=== PATIENT | male | born 1975 | race Caucasian/White ===

== ENCOUNTER 2019-09-22 14:19 | Emergency (ER) | payer BC, SELFPAY ==
[2019-09-22] MEDS ORDERED: LIDOCAINE 1% MPF 5 ML VIAL ONE (15:12)
[2019-09-22] MEDS ORDERED: TETANUS & DIPHTHERIA TOX,ADULT 0.5 ML VIAL ONE (15:12)
--- NOTE | 2019-09-22 15:29 | RAD REPORT ---
EXAM DESCRIPTION: RAD -Hand Left 3 View - 09/22/2019 3:20 pm CLINICAL HISTORY: Left hand pain status post injury FINDINGS: No fracture or dislocation is seen. A soft tissue laceration second PIP. No foreign body noted
--- NOTE | 2019-09-22 16:06 | ER ---
Nurse's Notes [facility] Name: Jose Angel Bradley II Age: 44 yrs Sex: Male : 1975 Arrival Date: 09/22/2019 Time: 14:29 Bed 24 Private MD: Diagnosis: Superficial laceration left 2nd digit Presentation: 09/22 14:57 Presenting complaint: Patient states: cut left index finger with very sharp knife. iw Transition of care: patient was not received from another setting of care. Complicating Factors: There are no complicating factors for this patient. Onset of symptoms was September 22, 2019. Risk Assessment: Do you want to hurt yourself or someone else? Patient reports no desire to harm self or others. Initial Sepsis Screen: Does the patient meet any 2 criteria? No. Patient's initial sepsis screen is negative. Does the patient have a suspected source of infection? No. Patient's initial sepsis screen is negative. 14:57 Method Of Arrival: Ambulatory iw 14:57 Acuity: SANDER 4 iw 14:57 Care prior to arrival: None. ca1 Historical: - Allergies: 16:25 No Known Allergies; ca1 - Immunization history:: Adult Immunizations up to date, Last tetanus immunization: unknown. - Coronavirus screen:: The patient has NOT traveled to [place] in the past 14 days. The patient has NOT had contact with known/suspected case of Coronavirus?. - Family history:: not pertinent. - Social history:: Smoking status: Patient denies any tobacco usage or history of. - Hospitalizations: : No recent hospitalization is reported. - Ebola Screening: : Patient negative for fever greater than or equal to 101.5 degrees Fahrenheit, and additional compatible Ebola Virus Disease symptoms Patient denies exposure to infectious person Patient denies travel to an Ebola-affected area in the 21 days before illness onset No symptoms or risks identified at this time. Screenin:59 Abuse screen: Denies threats or abuse. Denies injuries from another. Nutritional iw screening: No deficits noted. Tuberculosis screening: No symptoms or risk factors identified. Fall Risk None identified. Assessment: 15:00 General: Appears in no apparent distress. Behavior is calm, cooperative. Pain: iw Complains of pain in palmar aspect of proximal phalanx of left index finger. Neuro: Level of Consciousness is awake, alert, obeys commands, Oriented to person, place, time, situation, Moves all extremities. Cardiovascular: Patient's skin is warm and dry. Respiratory: Respiratory effort is even, unlabored. Derm: Skin is healthy with good turgor. Musculoskeletal: Range of motion: intact in all extremities. Injury Description: Laceration sustained to palmar aspect of proximal phalanx of left index finger is clean, 0.5 to 2.5 cm long, is bleeding a small amount. 16:15 Reassessment: Patient appears in no apparent distress at this time. Patient is alert, ca1 oriented x 3, equal unlabored respirations, skin warm/dry/pink. Vital Signs: 14:50 BP 123 / 88; Pulse 74; Resp 16; Temp 98.4; Pulse Ox 96% ; lt1 16:21 BP 117 / 83; Pulse 64; Resp 16; Pulse Ox 99% ; lt1 ED Course: 14:29 Patient arrived in ED. fj1 14:57 Arm band placed on right wrist. ca1 14:58 Triage completed. iw 14:59 Marquise Wolfe MD is Attending Physician. rn 15:00 Patient has correct armband on for positive identification. ca1 15:06 Bri Narvaez RN is Primary Nurse. iw 15:20 XRAY Hand LEFT 3 View In Process Unspecified. EDMS 15:59 Assist provider with laceration repair on palmar aspect of proximal phalanx of left iw index finger that was 2.5 cm. or less using sutures. Set up tray. Performed by Marquise Wolfe MD Dressed with Patient tolerated well. Patient did not have IV access during this emergency room visit. 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 Exp: iw 06/28/2021. Lot #: [id number]. } Route: IM; Site: right deltoid; 16:00 Follow up: Response: No adverse reaction ca1 16:00 Drug: Lidocaine (1 %) 1 vials {Note: By Dr. Wolfe.} Volume: 5 ml; Route: Infiltration; ca1 Outcome: 16:05 Discharge ordered by . rn 16:26 Discharged to home ambulatory. ca1 16:26 Condition: stable 16:26 Discharge instructions given to patient, Instructed on discharge instructions, follow up and referral plans. medication usage, wound care, Demonstrated understanding of instructions, follow-up care, medications, wound care. 16:28 Patient left the ED. ca1 Signatures: Dispatcher [employer] Bri Alvarado RN RN iw Nieto, Roman, MD MD rn Acob, Cheryl, RN RN ca1 Stefania Frausto 1 Demario Echols fj1
--- NOTE | 2019-09-22 16:06 | EDPHYS ---
Physician Documentation [facility] Name: Jose Angel Bradley II Age: 44 yrs Sex: Male : 1975 Arrival Date: 09/22/2019 Time: 14:29 Bed 24 Private MD: ED Physician Marquise Wolfe HPI: 09/22 15:05 This 44 yrs old Male presents to ER via Ambulatory with complaints of rn Laceration To Hand. 15:05 The patient has a laceration related to: a puncture wound from a knife , occurred at rn home. The laceration(s) is(are) located on the left hand, 2nd digit. Onset: The symptoms/episode began/occurred just prior to arrival. Associated signs and symptoms: The patient has no apparent associated signs or symptoms, Pertinent negatives: heavy bleeding, numbness distal to injury, suspected foreign body. The patient has not experienced similar symptoms in the past. Reports holding clean, never used knife in right hand, was going to peel off and cut duct tape, gave a little and accidentally hit knife with left 2nd digit. Mild bleeding, unknown tetanus, has FROM. No numbness/tingling.. Historical: - Allergies: 16:25 No Known Allergies; ca1 - Immunization history:: Adult Immunizations up to date, Last tetanus immunization: unknown. - Coronavirus screen:: The patient has NOT traveled to [place] in the past 14 days. The patient has NOT had contact with known/suspected case of Coronavirus?. - Family history:: not pertinent. - Social history:: Smoking status: Patient denies any tobacco usage or history of. - Hospitalizations: : No recent hospitalization is reported. - Ebola Screening: : Patient negative for fever greater than or equal to 101.5 degrees Fahrenheit, and additional compatible Ebola Virus Disease symptoms Patient denies exposure to infectious person Patient denies travel to an Ebola-affected area in the 21 days before illness onset No symptoms or risks identified at this time. ROS: 15:05 MS/Extremity: + laceration to left 2nd digit rn Exam: 15:05 Constitutional: This is a well developed, well nourished patient who is awake, alert, rn and in no acute distress. MS/ Extremity: Pulses equal, no cyanosis. Neurovascular intact. Full, normal range of motion. + 3 cm laceration, clean, to dorsomedial left 2nd digit medial and overlying PIP, very minimal bleeding, FROM 2nd digit. Vital Signs: 14:50 BP 123 / 88; Pulse 74; Resp 16; Temp 98.4; Pulse Ox 96% ; lt1 16:21 BP 117 / 83; Pulse 64; Resp 16; Pulse Ox 99% ; lt1 Procedures: 15:28 Nerve block: (digital) of palmar aspect of proximal phalanx of left index finger tangled yarn worker: Lidocaine 1% without epinephrine Amount: 4 mls were injected, Effect: the patient's symptoms are improved, Set up for procedure. Performed by Marquise Wolfe MD Patient tolerated well. Laceration: 16:03 Wound Repair of 3cm ( 1.2in ) subcutaneous laceration to left 2nd digit, dorsomedial rn PIP. Distal neuro/vascular/tendon intact. Anesthesia: Digital block administered with 3 mls of 1% lidocaine. Wound prep: Extensive cleansing by civil laboratory technician, Wound irrigation, Copious irrigation. Skin closed with 5 4-0 Prolene using interrupted sutures and sterile technique. Dressed with Kerlix. Patient tolerated well. MDM: 14:59 Patient medically screened. rn 16:03 Differential diagnosis: superficial laceration. Data reviewed: vital signs, nurses rn notes, radiologic studies, plain films, and as a result, I will discharge patient. Counseling: I had a detailed discussion with the patient and/or guardian regarding: the historical points, exam findings, and any diagnostic results supporting the discharge/admit diagnosis, radiology results, the need for outpatient follow up, to return to the emergency department if symptoms worsen or persist or if there are any questions or concerns that arise at home. Response to treatment: the patient's symptoms have markedly improved after treatment, and as a result, I will discharge patient. Special discussion: I discussed with the patient/guardian in detail that at this point there is no indication for admission to the hospital. It is understood, however, that if the symptoms persist or worsen the patient needs to return immediately for re-evaluation. ED course: FROM left 2nd digit before and after sutures. Return in 14 days. . 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 Exp: iw 06/28/2021. Lot #: [id number]. } Route: IM; Site: right deltoid; 16:00 Follow up: Response: No adverse reaction ca1 16:00 Drug: Lidocaine (1 %) 1 vials {Note: By Dr. Wolfe.} Volume: 5 ml; Route: Infiltration; ca1 Disposition: 09/22/19 16:05 Discharged to Home. Impression: Superficial laceration left 2nd digit. - Condition is Stable. - Discharge Instructions: Laceration Care, Adult, Sutured Wound Care. - Prescriptions for Augmentin 875- 125 mg Oral Tablet - take 1 tablet by ORAL route every 12 hours for 10 days; 20 tablet. - Medication Reconciliation Form, Thank You Letter, Antibiotic Education, Prescription Opioid Use form. - Follow up: Emergency Department; When: 14 days; Reason: Wound Recheck, Staple/Suture removal. - Problem is new. - Symptoms have improved. Signatures: Dispatcher [employer] EDMS Bri Narvaez RN RN iw Yaneth, MD MD barak [place] Acob, BARAK Gomez RN ca1 Corrections: (The following items were deleted from the chart) 16:28 16:05 09/22/2019 16:05 Discharged to Home. Impression: Superficial laceration left 2nd ca1 digit. Condition is Stable. Forms are Medication Reconciliation Form, Thank You Letter, Antibiotic Education, Prescription Opioid Use. Follow up: Emergency Department; When: 14 days; Reason: Wound Recheck, Staple/Suture removal. Problem is new. Symptoms have improved. rn
[2019-09-22 16:38] VITALS: TEMP 98.4
[2019-09-22 16:39] VITALS: BP 117/83; O2SAT 99
== END 2019-09-22 16:28 | disposition home or self-care (01) ==
LOC: ER 14:19
PROC: 0JQK0ZZ Repair Left Hand Subcutaneous Tissue and Fascia, Open Approach (ICD-10-PCS; principal; 2019-09-22)
DX: S61.211A Laceration without foreign body of left index finger without damage to nail, initial encounter (principal); W26.0XXA Contact with knife, initial encounter; Y93.89 Activity, other specified; Y92.009 Unspecified place in unspecified non-institutional (private) residence as the place of occurrence of the external cause; Z23 Encounter for immunization
CPT/HCPCS: 64450; 90471; 90714; 99283

== ENCOUNTER 2020-04-30 09:57 | Inpatient (IN) | payer SELFPAY ==
[2020-04-30] MEDS ORDERED: VANCOMYCIN/NS 1 gm 1 GM/250 ML BAG IV ONE (11:30)
[2020-04-30 11:32] LABS: Absolute Lymphocytes (CBC) 1.7 K/uL (0.7-4.9); Basophils % 0.4 % (0-1.3); Hematocrit 44.4 % (39.6-49.0); Lymphocytes % 9.8 % (15.3-44.8); MPV 9.3 fL (7.6-11.3); RBC Red Blood Cell Count 4.81 M/uL (4.33-5.43)
--- NOTE | 2020-04-30 11:33 | ER ---
Nurse's Notes [facility] Name: Jose Angel Bradley II Age: 44 yrs Sex: Male : 1975 Arrival Date: 04/30/2020 Time: 09:57 Bed 19 Private MD: Diagnosis: Cellulitis of left upper limb;Open wound of forearm;Acute lymphangitis of left upper limb Presentation: 04/30 10:21 Chief complaint: Patient states: infected hair folicle on left arm, redness, swelling, dm5 and streaking noted from wrist to elbow. 10:21 Acuity: SANDER 3 dm5 10:29 Coronavirus screen: Client denies travel out of the [place] in the last 14 days. At this ll1 time, the client does not indicate any symptoms associated with coronavirus-19. Ebola Screen: Patient denies travel to an Ebola-affected area in the 21 days before illness onset. Initial Sepsis Screen: Does the patient meet any 2 criteria? No. Patient's initial sepsis screen is negative. Risk Assessment: Do you want to hurt yourself or someone else? Patient reports no desire to harm self or others. Onset of symptoms was April 25, 2020. 10:29 Method Of Arrival: Ambulatory ll1 12:26 Initial Sepsis Screen: Does the patient have a suspected source of infection? Yes: Skin ph breakdown/wound. 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 - Social history:: Smoking status: Patient reports the use of cigarette tobacco products, smokes one pack cigarettes per day. Screenin:25 Abuse screen: Denies threats or abuse. Denies injuries from another. Nutritional ph screening: No deficits noted. Tuberculosis screening: No symptoms or risk factors identified. Fall Risk None identified. Assessment: 12:23 General: Appears in no apparent distress. comfortable, well groomed, Behavior is calm, ph cooperative, appropriate for age, Reports chills for 0-12 hours, Denies fever. Pain: Complains of pain in dorsal aspect of left forearm. Neuro: Level of Consciousness is awake, alert, obeys commands, Oriented to person, place, time, situation. Cardiovascular: Capillary refill < 3 seconds in bilateral fingers Patient's skin is warm and dry. Respiratory: Airway is patent Respiratory effort is even, unlabored, Respiratory pattern is regular, symmetrical. GI: Patient currently denies diarrhea, nausea, vomiting. Derm: Skin is healthy with good turgor, Skin is pink, warm \T\ dry. Abscess located on dorsal aspect of left forearm is redness noted to be extending to palmar aspect of forearm and dorsal aspect of hand. Vital Signs: 10:29 BP 147 / 100; Pulse 89; Resp 18; Temp 98.2; Pulse Ox 96% ; Weight 97.52 kg; Height 6 ll1 ft. 0 in. (182.88 cm); Pain 3/10; 12:23 BP 142 / 93; Pulse 82; Resp 18; Pulse Ox 99% on R/A; ph 13:14 Temp 98.4; ph 10:29 Body Mass Index 29.16 (97.52 kg, 182.88 cm) ll1 ED Course: 09:57 Patient arrived in ED. ds1 10:22 Triage completed. dm5 10:32 Arm band placed on. ll1 11:08 Kenneth Wakefield PA is PHCP. jr8 11:08 Alec Alvarado MD is Attending Physician. jr8 11:10 Brynn Moran, BARAK is Primary Nurse. ph 11:22 First set of blood cultures drawn by mt. dm5 11:28 Inserted saline lock: 20 gauge in left antecubital area, using aseptic technique. Blood dm5 collected. 11:32 Girma Franco DO is Hospitalizing Provider. jr8 11:37 US Extrmty Nonvasular Limited In Process Unspecified. EDMS 12:25 Patient has correct armband on for positive identification. Bed in low position. Call ph light in reach. Side rails up X 1. Pulse ox on. NIBP on. Door closed. Noise minimized. 13:30 No provider procedures requiring assistance completed. Patient admitted, IV remains in ph place. Administered Medications: 12:15 Drug: Cefepime 1 grams Route: IVPB; Rate: 200 ml/hr; Infused Over: 30 mins; Site: right ph antecubital; 12:49 Follow up: Response: No adverse reaction; IV Status: Completed infusion ph 12:15 Drug: NS 0.9% 1000 ml Route: IV; Rate: 100 ml/hr; Site: right antecubital; ph 12:49 Follow up: Response: No adverse reaction; IV Status: Infusion continued upon admission ph 12:49 Drug: vancoMYCIN 1 grams Route: IVPB; Infused Over: 2 hrs; Site: right antecubital; ph 13:10 Follow up: IV Status: Infusion continued upon admission ph 13:05 Drug: Zofran (Ondansetron) 4 mg Route: IVP; Site: right antecubital; ph 13:11 Follow up: Response: No adverse reaction; Nausea is decreased ph 13:07 Drug: morphine 4 mg Route: IVP; Site: right antecubital; ph 13:10 Follow up: Response: No adverse reaction; Pain is decreased; RASS: Alert and Calm (0) ph Outcome: 11:32 Decision to Hospitalize by Provider. timo 13:31 Patient left the ED. ph 13:31 Admitted to Med/surg accompanied by tech, family with patient, via wheelchair, with ph chart. 13:31 Condition: good 13:31 Instructed on the need for admit. Signatures: Dispatcher [employer] Romelia Gale, RN RN [email or web address] Jenny Wagner ds1 Kenneth Wakefield PA PA jr8 Brynn Moran RN RN Lori Anderson RN RN ll1
--- NOTE | 2020-04-30 11:33 | EDPHYS ---
Physician Documentation [facility] Name: Jose Angel Bradley II Age: 44 yrs Sex: Male : 1975 Arrival Date: 04/30/2020 Time: 09:57 Bed 19 Private MD: ED Physician Alec Alvarado HPI: 04/30 11:24 This 44 yrs old Male presents to ER via Ambulatory with complaints of Arm jr8 Pain - Possible infection. 11:24 The patient or guardian complains of pain, a rash, swelling, tenderness. The complaints jr8 affect the dorsal aspect of left forearm and palmar aspect of left forearm. Context: The problem was sustained at home. Onset: The symptoms/episode began/occurred gradually, 2 day(s) ago, and became worse today. Modifying factors: The symptoms are alleviated by nothing. the symptoms are aggravated by nothing. Associated signs and symptoms: The patient has no apparent associated signs or symptoms. Severity of symptoms: At their worst the symptoms were moderate, in the emergency department the symptoms are unchanged. The patient has not experienced similar symptoms in the past. The patient has not recently seen a physician. Patient stated that he shaved his arm the other day. Had what he thought was infected follicle. This morning had rapid increase in swelling and with streaking of underarm . Historical: - Allergies: 10: No Known Allergies; ll1 - PMHx: 10: MRSA; ruptured disc; ll1 - Immunization history:: Flu vaccine is up to date. - Social history:: Smoking status: Patient reports the use of cigarette tobacco products, smokes one pack cigarettes per day. ROS: 11:26 Eyes: Negative for injury, pain, redness, and discharge, ENT: Negative for injury, jr8 pain, and discharge, Neck: Negative for injury, pain, and swelling, Cardiovascular: Negative for chest pain, palpitations, and edema, Respiratory: Negative for shortness of breath, cough, wheezing, and pleuritic chest pain, Abdomen/GI: Negative for abdominal pain, nausea, vomiting, diarrhea, and constipation, Back: Negative for injury and pain, Neuro: Negative for headache, weakness, numbness, tingling, and seizure. 11:26 MS/extremity: Positive for erythema, pain, swelling, tenderness, of the left arm. Exam: 11:26 Constitutional: This is a well developed, well nourished patient who is awake, alert, jr8 and in no acute distress. Cardiovascular: Regular rate and rhythm with a normal S1 and S2. No gallops, murmurs, or rubs. Normal PMI, no JVD. No pulse deficits. Respiratory: Lungs have equal breath sounds bilaterally, clear to auscultation and percussion. No rales, rhonchi or wheezes noted. No increased work of breathing, no retractions or nasal flaring. Abdomen/GI: Soft, non-tender, with normal bowel sounds. No distension or tympany. No guarding or rebound. No evidence of tenderness throughout. Back: No spinal tenderness. No costovertebral tenderness. Full range of motion. Skin: Warm, dry with normal turgor. Normal color Neuro: Awake and alert, GCS 15, oriented to person, place, time, and situation. Cranial nerves II-XII grossly intact. Motor strength 5/5 in all extremities. Sensory grossly intact. Cerebellar exam normal. Normal gait. 11:26 Musculoskeletal/extremity: Extremities: grossly normal except: noted in the left arm: Patient has approximately 4 mm open wound to mid dorsal left arm. Moderate swelling surrounds wound extending out about 4 cm around. There is streaking noted to ventral aspect of arm extending from wrist to AC region as well. Pain noted with flexion and extension of wrist but with full ROM, Pulses: noted to be 2+ in the right radial artery and left radial artery, Sensation intact. Vital Signs: 10:29 BP 147 / 100; Pulse 89; Resp 18; Temp 98.2; Pulse Ox 96% ; Weight 97.52 kg; Height 6 ll1 ft. 0 in. (182.88 cm); Pain 3/10; 12:23 BP 142 / 93; Pulse 82; Resp 18; Pulse Ox 99% on R/A; ph 13:14 Temp 98.4; ph 10:29 Body Mass Index 29.16 (97.52 kg, 182.88 cm) ll1 MDM: 11:08 Patient medically screened. [facility] 11:26 Data reviewed: vital signs, nurses notes, lab test result(s), radiologic studies, jr8 ultrasound, and as a result, I will admit patient. Data interpreted: Pulse oximetry: on room air is 96 %. Interpretation: normal. Counseling: I had a detailed discussion with the patient and/or guardian regarding: the historical points, exam findings, and any diagnostic results supporting the discharge/admit diagnosis, lab results, radiology results, the need for further work-up and treatment in the hospital. 04/30 11:14 Order name: CBC with Diff; Complete Time: 12:20 jr8 04/30 11:14 Order name: Basic Metabolic Panel; Complete Time: 12:20 8 04/30 11:14 Order name: LFT's; Complete Time: 12:20 8 04/30 11:14 Order name: Blood Culture Adult (2) [facility] 04/30 11:14 Order name: ESR; Complete Time: 12:20 8 04/30 11:14 Order name: CRP; Complete Time: 12:20 8 04/30 11:14 Order name: Procalcitonin; Complete Time: 12:25 8 04/30 11:21 Order name: US Extrmty Nonvasular Limited [facility] 04/30 11:26 Order name: Wound Culture [facility] 04/30 11:14 Order name: IV; Complete Time: 11:18 jr8 Administered Medications: 12:15 Drug: Cefepime 1 grams Route: IVPB; Rate: 200 ml/hr; Infused Over: 30 mins; Site: right ph antecubital; 12:49 Follow up: Response: No adverse reaction; IV Status: Completed infusion ph 12:15 Drug: NS 0.9% 1000 ml Route: IV; Rate: 100 ml/hr; Site: right antecubital; ph 12:49 Follow up: Response: No adverse reaction; IV Status: Infusion continued upon admission ph 12:49 Drug: vancoMYCIN 1 grams Route: IVPB; Infused Over: 2 hrs; Site: right antecubital; ph 13:10 Follow up: IV Status: Infusion continued upon admission ph 13:05 Drug: Zofran (Ondansetron) 4 mg Route: IVP; Site: right antecubital; ph 13:11 Follow up: Response: No adverse reaction; Nausea is decreased ph 13:07 Drug: morphine 4 mg Route: IVP; Site: right antecubital; ph 13:10 Follow up: Response: No adverse reaction; Pain is decreased; RASS: Alert and Calm (0) ph Disposition: 05/01 09:26 Co-signature as Attending Physician, Alec Alvarado MD I agree with the assessment and kdr plan of care. Disposition: 04/30/20 11:32 Hospitalization ordered by Girma Franco for Inpatient Admission. Preliminary diagnosis are Cellulitis of left upper limb, Open wound of forearm, Acute lymphangitis of left upper limb. - Bed requested for Telemetry/MedSurg (Inpatient). - Status is Inpatient Admission. ph - Condition is Stable. - Problem is new. - Symptoms are unchanged. Signatures: Dispatcher [employer] EDMS Alec Alvarado MD MD kdr Roszak, Josh, PA PA jr8 Brynn Moran RN RN ph Eduard Jett, RN RN ja1 Lori Anderson RN RN ll1 Corrections: (The following items were deleted from the chart) 04/30 11:32 11:32 Hospitalization Ordered by Girma Franco DO for Inpatient Admission. Preliminary jr8 diagnosis is Cellulitis of left upper limb; Open wound of forearm. Bed requested for Telemetry/MedSurg (Inpatient). Status is Inpatient Admission. Condition is Stable. Problem is new. Symptoms are unchanged. jr8 12:46 11:32 04/30/2020 11:32 Hospitalization Ordered by Girma Franco DO for Inpatient ja1 Admission. Preliminary diagnosis is Cellulitis of left upper limb; Open wound of forearm; Acute lymphangitis of left upper limb. Bed requested for Telemetry/MedSurg (Inpatient). Status is Inpatient Admission. Condition is Stable. Problem is new. Symptoms are unchanged. jr8 13:31 12:46 04/30/2020 11:32 Hospitalization Ordered by Girma Franco DO for Inpatient ph Admission. Preliminary diagnosis is Cellulitis of left upper limb; Open wound of forearm; Acute lymphangitis of left upper limb. Bed requested for Telemetry/MedSurg (Inpatient). Status is Inpatient Admission. Condition is Stable. Problem is new. Symptoms are unchanged. ja1
[2020-04-30] MEDS ORDERED: NA CHLORIDE 0.9% 1,000 ML ONE (11:42)
[2020-04-30 11:59] LABS: ALT/SGPT 24 U/L (12-78); AST/SGOT 11 U/L (15-37); Albumin 4.7 g/dL (3.4-5.0); Alkaline Phosphatase 74 U/L (45-117); BUN Blood Urea Nitrogen 12 mg/dL (7-18); Bicarbonate 26 mmol/L (21-32); Bilirubin Direct 0.1 mg/dL (0-0.2); Bilirubin Total 0.5 mg/dL (0.2-1.0); Glucose Level 87 mg/dL (74-106); Potassium 4.2 mmol/L (3.5-5.1); Protein, Total 8.3 g/dL (6.4-8.2); Sodium Level 138 mmol/L (136-145)
--- NOTE | 2020-04-30 12:29 | P.HP ---
Certification for Inpatient Patient admitted to: Inpatient With expected LOS: >2 Midnights Patient will require the following post-hospital care: None Practitioner: I am a practitioner with admitting privileges, knowledge of patient current condition, hospital course, and medical plan of care. Services: Services provided to patient in accordance with Admission requirements found in Title 42 Section 412.3 of the Code of Federal Regulations Patient History Date of Service: 04/30/20 Primary Care Provider: none Reason for admission: Left forearm cellulitis/abscess History of Present Illness: 44 yo CM without major medical issues presented to the ER with worsening left arm erythema, warmth and pain. The patient noted some irritation to the left forearm at the site of a possible ingrown hair. He shaved the area to better address for wound care. This started on Monday. Erythema continued to worsen. Today he woke up with increased erythema, pain and swelling. He start to notice erythema heading towards the elbow and the wrist area. Patient denies any significant chest pain, shortness of breath, headache or dizziness. He denies any significant fever. He came to the ER for further evaluation. In the ER patient was evaluated. Patient had notable inflammation to the left forearm region. White count 16.9, hemoglobin 15. Neutrophils elevated. CRP also elevated. Sodium 138, potassium 4.2. BUN of 12, creatinine 0.9. GFR greater than 90. Glucose 87. Ultrasound to the left forearm pending. X-rays also pending. Patient was admitted for further evaluation and treatment. When I evaluated the patient. He had reported that he had a history of infection to the right elbow all the require debridement many years ago. The patient has a tattoo to the area of inflammation. He reports that he has tried to take care of the infection on his own without success. Allergies No Known Allergies Allergy (Unverified 04/30/20 11:27) Home medications list reviewed: No - Past Medical/Surgical History Diabetic: No -: Ruptured disc -: Pain shot injections to the spine -: Irrigation debridement to the right elbow Psychosocial/ Personal History: Patient is - Family History Family History: Reviewed- Non-Contributory - Social History Smoking Status: Light Tobacco smoker (1-9 cigarettes/day) Counseled patient to stop smoking for: less than 10 minutes Smoking therapy provided: No Patient receptive to therapy: No Alcohol use: Yes CD- Drugs: No Caffeine use: Yes Place of Residence: Home Review of Systems General: As per HPI Eyes: Unremarkable ENT: Unremarkable Respiratory: Unremarkable Cardiovascular: Unremarkable Gastrointestinal: Unremarkable Genitourinary: Unremarkable Musculoskeletal: As per HPI Integumentary: As per HPI Neurological: Unremarkable Lymphatics: Unremarkable Physical Examination - Physical Exam General: Alert, In no apparent distress, Oriented x3, Cooperative HEENT: Atraumatic, Normocephalic, Mucous membr. moist/pink Neck: Supple Respiratory: Clear to auscultation bilaterally, Normal air movement Cardiovascular: Normal pulses, Regular rate/rhythm Gastrointestinal: Normal bowel sounds, Soft and benign, Non-distended Musculoskeletal: No clubbing Integumentary: Other (Significant area of erythema to the left forearm along with swelling, warmth. There is an area of fluctuance that measures about 2-3 cm in length. There is a small puncture site. Some drainage noted. Erythema noted extending to the elbow region and a wrist but not crossing the joints. Pain noted with palpation. Patient with large tattoo to the area.) Neurological: Normal speech, Normal strength at 5/5 x4 extr, Normal tone, Normal affect - Studies Laboratory Data (last 24 hrs) 04/30/20 11:24: Sodium 138, Potassium 4.2, BUN 12, Creatinine 0.90, Glucose 87, Total Bilirubin 0.5, AST 11 L, ALT 24, Alkaline Phosphatase 74 04/30/20 11:24: WBC 16.9 H, Hgb 15.1, Hct 44.4, Plt Count 246 Assessment and Plan - Plan Impression: Left forearm cellulitis with possible abscess Plan: Patient will be admitted for further evaluation and treatment. Case discussed with surgery. Patient remains NPO at this time. Patient will require surgical debridement. Will start and continue with vancomycin and cefepime. Will obtain blood and wound culture results. Continue monitor lab closely. Will provide medication for pain also start IV fluids. Await evaluation and surgical recommendations. Anticipate improvement over the next 48-72 hr. Discharge Plan: Home Plan to discharge in: 72 Hours - Advance Directives Does patient have a Living Will: No Does patient have a Durable POA for Healthcare: No - Code Status/Comfort Care Code Status Assessed: Yes (Patient is full code) Time Spent Managing Pts Care (In Minutes): 55
[2020-04-30] MEDS ORDERED: ONDANSETRON 4 MG/2 ML VIAL ONE (13:11)
[2020-04-30] MEDS ORDERED: MORPHINE 4 MG/ML SYR ONE (13:11)
[2020-04-30] MEDS ORDERED: VANCOMYCIN 750 MG in NA CHLORIDE 0.9% 150 ML IVPB ONE (14:00)
[2020-04-30] MEDS ORDERED: ACETAMINOPHEN 650MG/RECT SUPP PR PRN (14:40)
[2020-04-30] MEDS: NA CHLORIDE 0.9% 1,000 ML IV SCH (14:40)
[2020-04-30] MEDS ORDERED: ACETAMINOPHEN 500 MG TAB PO PRN (14:40)
[2020-04-30] MEDS ORDERED: TRAMADOL HCL 50 MG TAB PO PRN (14:40)
[2020-04-30] MEDS ORDERED: MORPHINE 2 MG/ML SYR IV PRN (14:40)
[2020-04-30] MEDS ORDERED: CEFEPIME 1 GM/VIAL IV SCH (14:40)
[2020-04-30] MEDS ORDERED: ONDANSETRON 4 MG/2 ML VIAL IV PRN (14:40)
[2020-04-30] MEDS: ENOXAPARIN 40 MG/0.4 ML SQ SCH (15:00)
--- NOTE | 2020-04-30 15:12 | P.CNS ---
Date of Consult: 04/30/20 PC: This patient presents emergency room with pain in his left forearm for diagnosis and treatment. HPC: Patient has some redness and swelling in this area last few days. Gradually pointed into an abscess. This partially opened and drained some purulent material. However he is having increasing pain in discomfort. PMH: Negative PSHx: Negative SOC: No known allergies SYS REVIEW: No cough, wheeze, shortness of breath. No chest pain or palpitations. No urinary complaints. Has good movement of his fingers, wrist and elbow. No loss of sensation. O/E awake alert vital signs are stable HEENT: Within normal limits Chest: Air entry equal bilaterally ABD: Soft LOCO: Swelling over the dorsum of the left forearm. Has a fluctuant area measuring approximately 4 inches x 3 inches in size. DATA: Elevated white cell count IMPRESSION: Abscess PLAN: I will take him to the operating room for incision, drainage, sharp debridement of this abscess of the left forearm. The risks of this procedure have been discussed. The possibility of bleeding, infection, recurrence and need for further surgeries and procedures was described. The fact that it will inner few events is tattoo and may cause some alteration were explained. He understands and wants us to proceed.
[2020-04-30] MEDS: CEFEPIME/SWI 1gm 10 ML IVP SCH ×2 (15:30→20:15)
[2020-04-30 15:51] VITALS: BMI 29.1
[2020-04-30] MEDS ORDERED: propofoL 200 MG/20 ML VIAL IV ONE ×2 (16:00→17:25)
[2020-04-30] MEDS ORDERED: FENTANYL CITR 100 MCG/2 ML ONE (16:00)
[2020-04-30] MEDS ORDERED: MIDAZOLAM HCL 2 MG/2 ML INJ ONE (16:00)
[2020-04-30] MEDS ORDERED: Ringers Lactate 1,000 ML IV ONE (16:01)
[2020-04-30] MEDS ORDERED: BUPIVACAINE 0.5% PF 10 ML VIAL ONE ×2 (16:54→17:27)
--- NOTE | 2020-04-30 17:24 | P.OP ---
Preoperative diagnosis: Abscess of left forearm Postoperative diagnosis: The same Primary procedure: Incision, drainage, sharp debridement of abscess of the left forearm Anesthesia: Mac Estimated blood loss: Less than 10 cc Specimen: Cultures both a aerobic and anaerobic were taken Operative Technique: The patient brought the operating room and placed supine on the table. After the induction of adequate sedation by anesthesia, the area of the left forearm was prepped with a Betadine solution draped in usual aseptic manner. The area was injected with 0.25% Marcaine. The central necrotic area was excise d using 11 blade prone. This allowed us to access the abscess cavity which was in the deep subcutaneous tissue on top of the fascia. This loculations were broken down and the purulent material was removed. A 2. Nylon was now placed into the wound and brought out more superiorly approximately 3 inches from our initial opening and the suture was then tied on itself to keep the area open and draining during the postoperative period. Again 0.25% Marcaine was used to infiltrate the area to allow for adequate analgesia during the postoperative period. The procedure he was stable when sent to the recovery room. Needle sponge instrument count were correct. Drain(s): Other (A 2. Nylon) Transferred to: Recovery Room Condition: Good
[2020-04-30] MEDS: HYDROCODONE/APAP 7.5/325 MG TAB PO PRN (20:15)
[2020-04-30] MEDS: MUPIROCIN 2% OINT 22GM TUBE TOP SCH (20:16)
[2020-04-30 23:51] LABS: Urine Appearance CLEAR; Urine Bilirubin NEGATIVE (NEG); Urine Blood NEGATIVE (NEG); Urine Color YELLOW; Urine Glucose NEGATIVE (NEG); Urine Protein NEGATIVE (NEG); Urine Urobilinogen 0.2 mg/dL (0.2-1.0); Urine pH 6.5 (5.0-7.0)
[2020-04-30 23:53] LABS: Urine Microscopic Reflex NO UMIC
--- NOTE | 2020-05-01 00:27 | RAD REPORT ---
EXAM DESCRIPTION: RAD - Elbow Left 3 View - 04/30/2020 10:22 pm CLINICAL HISTORY: Left forearm cellulitis/abscess COMPARISON: No comparisons FINDINGS: Small olecranon spur is noted. Mild soft tissue swelling is seen about the elbow. No fract ure, dislocation or evidence of osteomyelitis. No radiopaque foreign body.
[2020-05-01] MEDS ORDERED: VANCOMYCIN 1.75 GM in NA CHLORIDE 0.9% 500 ML IVPB SCH (02:00)
[2020-05-01] MEDS: HYDROCODONE/APAP 7.5/325 MG TAB PO PRN ×2 (04:43→10:21)
[2020-05-01] MEDS: NA CHLORIDE 0.9% 1,000 ML IV SCH (04:44)
[2020-05-01 05:27] LABS: Absolute Lymphocytes (CBC) 2.2 K/uL (0.7-4.9); Basophils % 0.5 % (0-1.3); Hematocrit 35.6 % (39.6-49.0); MPV 9.1 fL (7.6-11.3); RBC Red Blood Cell Count 3.91 M/uL (4.33-5.43)
[2020-05-01 05:43] LABS: BUN Blood Urea Nitrogen 10 mg/dL (7-18); Bicarbonate 23 mmol/L (21-32); Glucose Level 97 mg/dL (74-106); Potassium 3.8 mmol/L (3.5-5.1); Sodium Level 140 mmol/L (136-145)
[2020-05-01] MEDS: CEFEPIME/SWI 1gm 10 ML IVP SCH (08:24)
[2020-05-01] MEDS: ENOXAPARIN 40 MG/0.4 ML SQ SCH (08:25)
[2020-05-01] MEDS ORDERED: POTASSIUM CL SA 10 MEQ TAB PO ONE (09:00)
--- NOTE | 2020-05-01 09:07 | P.DS ---
Admission Date: 04/30/20 Discharge Date: 05/01/20 Primary Care Provider: none Disposition: ROUTINE DISCHARGE Discharge Condition: GOOD Reason for Admission: Left forearm cellulitis/abscess Consultations: Surgery-Dr. Mccabe Procedures: Surgery: Date: 04/30/20 17:21 Preoperative diagnosis: Abscess of left forearm Postoperative diagnosis: The same Primary procedure: Incision, drainage, sharp debridement of abscess of the left forearm Anesthesia: Mac Estimated blood loss: Less than 10 cc Specimen: Cultures both a aerobic and anaerobic were taken Drain(s): Other (A 2. Nylon) Transferred to: Recovery Room Condition: Good Medical Problem List: Left forearm cellulitis/ and abscess status post incision, drainage and sharp debridement of abscess Brief History of Present Illness: 44 yo CM without major medical issues presented to the ER with worsening left arm erythema, warmth and pain. The patient noted some irritation to the left forearm at the site of a possible ingrown hair. He shaved the area to better address for wound care. This started on Monday. Erythema continued to worsen. Today he woke up with increased erythema, pain and swelling. He start to notice erythema heading towards the elbow and the wrist area. Patient denies any significant chest pain, shortness of breath, headache or dizziness. He denies any significant fever. He came to the ER for further evaluation. In the ER patient was evaluated. Patient had notable inflammation to the left forearm region. White count 16.9, hemoglobin 15. Neutrophils elevated. CRP also elevated. Sodium 138, potassium 4.2. BUN of 12, creatinine 0.9. GFR greater than 90. Glucose 87. Ultrasound to the left forearm pending. X-rays also pending. Patient was admitted for further evaluation and treatment. When I evaluated the patient. He had reported that he had a history of infection to the right elbow all the require debridement many years ago. The patient has a tattoo to the area of inflammation. He reports that he has tried to take care of the infection on his own without success. Hospital Course: Patient presented with left forearm cellulitis/abscess. Patient was admitted for further evaluation and treatment. Patient seen by surgery. Surgical intervention was required. Patient had incision, drainage and sharp debridement of the abscess. Patient tolerated the procedure well. Patient has done well Overnite. At discharge patient will continue with current wound care as jalyn mmended by surgery. At discharge patient will continue with doxycycline 100 mg 1 pill twice daily and Bactrim DS 1 pill twice daily for 7 days. Patient will also be provided Bactroban ointment to be applied to the nares and umbilicus twice daily. A limited supply of Tylenol with codeine 1 pill 3 times a day as needed for pain will be provided. Patient may take Tylenol or ibuprofen over the counter as needed for pain as well. Recommend to elevate arm when sitting or lying down. Recommend follow up with surgery within 1 week to follow up this hospitalization and continue his care. Vital Signs/Physical Exam: Temp Pulse Resp BP Pulse Ox 98.2 F 81 18 124/74 96 05/01/20 08:00 05/01/20 08:00 05/01/20 08:00 05/01/20 08:00 05/01/20 08:00 General: Alert, In no apparent distress, Oriented x3, Cooperative HEENT: Atraumatic Neck: Supple Respiratory: Clear to auscultation bilaterally, Normal air movement Cardiovascular: Normal pulses, Regular rate/rhythm Gastrointestinal: Normal bowel sounds, Soft and benign, Non-distended Integumentary: Other (Erythema resolved. Swelling improved. Postsurgical changes noted. Nylon string in place.) Neurological: Normal speech, Normal strength at 5/5 x4 extr, Normal tone, Normal affect Laboratory Data at Discharge: WBC 15.4 K/uL (4.3-10.9) H 05/01/20 05:12 Hgb 12.2 g/dL (13.6-17.9) L D 05/01/20 05:12 Hct 35.6 % (39.6-49.0) L D 05/01/20 05:12 Plt Count 195 K/uL (152-406) D 05/01/20 05:12 Sodium 140 mmol/L (136-145) 05/01/20 05:12 Potassium 3.8 mmol/L (3.5-5.1) 05/01/20 05:12 BUN 10 mg/dL (7-18) 05/01/20 05:12 Creatinine 0.89 mg/dL (0.55-1.3) 05/01/20 05:12 Glucose 97 mg/dL (74-106) 05/01/20 05:12 Magnesium 2.0 mg/dL (1.8-2.4) 05/01/20 05:12 Total Bilirubin 0.5 mg/dL (0.2-1.0) 04/30/20 11:24 AST 11 U/L (15-37) L 04/30/20 11:24 ALT 24 U/L (12-78) 04/30/20 11:24 Alkaline Phosphatase 74 U/L (45-117) 04/30/20 11:24 Home Medications: Codeine/APAP [Tylenol W/Codeine #3 tab] 1 tab PO TID PRN #10 tab 05/01/20 Doxycycline Hyclate 100 mg PO BID #14 tablet 05/01/20 Mupirocin Oint [Bactroban 2% Ointment*] 1 appl TOP BID #1 tube 05/01/20 Sulfamethoxazole/Trimethoprim [Bactrim Ds Tablet] 1 each PO BID #14 tablet 05/01/20 New Medications: Sulfamethoxazole/Trimethoprim [Bactrim Ds Tablet] 1 each PO BID #14 tablet Mupirocin Oint [Bactroban 2% Ointment*] 1 appl TOP BID #1 tube Doxycycline Hyclate 100 mg PO BID #14 tablet Codeine/APAP [Tylenol W/Codeine #3 tab] 1 tab PO TID PRN #10 tab PRN Reason: Pain Patient Discharge Instructions: 1. Recommend to establish care with PCP to follow up this hospitalization. 2. Patient presented with left forearm cellulitis/abscess. Patient was admitted for further evaluation and treatment. Patient seen by surgery. Surgical intervention was required. Patient had incision, drainage and sharp debridement of the abscess. Patient tolerated the procedure well. Patient has done well Overnite. At discharge patient will continue with current wound care as recommended by surgery. At discharge patient will continue with doxycycline 100 mg 1 pill twice daily and Bactrim DS 1 pill twice daily for 7 days. Patient will also be provided Bactroban ointment to be applied to the nares and umbilicus twice daily. A limited supply of Tylenol with codeine 1 pill 3 times a day as needed for pain will be provided. Patient may take Tylenol or ibuprofen over the counter as needed for pain as well. Recommend to elevate arm when sitting or lying down. Recommend follow up with surgery within 1 week to follow up this hospitalization and continue his care. Diet: AHA Activity: Ad myesha Time spent managing pt's care (in minutes): 55
--- NOTE | 2020-05-01 11:47 | RAD REPORT ---
EXAM DESCRIPTION: US - Extremity Nonvascular Limited - 04/30/2020 10:20 pm CLINICAL HISTORY: left dorsal forearmwound COMPARISON: No comparisons FINDINGS: Limited sonography of reviewed right lateral forearm performed. In the subcutaneous fatty tissues there is a 9 x 5 x 4 mm heterogeneous a amorphous shape hypoechoic collection. No deeper exte nsion towards the muscle layer. Final report was delayed due to malfunction of the substation electrician system. IMPRESSION: Small 9 mm heterogeneous hypoechoic collection deep to the skin service lateral forearm. Small abscess is possible. Noninfectious inflammatory fluid can have a similar presentation.
--- NOTE | 2020-05-01 11:48 | RAD REPORT ---
EXAM DESCRIPTION: RAD - Tib Fib Left - 05/01/2020 7:51 am CLINICAL HISTORY: Left leg injury, possible foreign body COMPARISON: None. FINDINGS: No fracture is identified. There is no dislocation or periosteal reaction noted. No acute or suspicious bony finding. No foreign body or other soft tissue abnormality. Final report was delayed due to malfunction of the senior research engineer system at the time of the examking damon IMPRESSION: Negative left tibia & fibula examination.
[2020-05-01] MEDS: MUPIROCIN 2% OINT 22GM TUBE TOP SCH (12:01)
[2020-05-01 12:14] VITALS: O2SAT 97
[2020-05-01 14:13] VITALS: TEMP 98.3
[2020-05-01 17:59] VITALS: BP 136/88
== END 2020-05-01 13:39 | disposition home or self-care (01) | DRG 572 ==
LOC: ER 09:57 → ERHOLD 12:21 → 2ND 13:17
PROVIDERS: ADMIT Family Medicine; ATTEND Family Medicine
PROC: 0JBH0ZZ Excision of Left Lower Arm Subcutaneous Tissue and Fascia, Open Approach (ICD-10-PCS; principal; 2020-04-30 14:45)
DX: L03.114 Cellulitis of left upper limb (principal); L02.414 Cutaneous abscess of left upper limb; F17.290 Nicotine dependence, other tobacco product, uncomplicated; Z20.828 Contact with and (suspected) exposure to other viral communicable diseases
CPT/HCPCS: 36415; 76882; 80048; 80076; 81003; 83735; 84145; 85025; 85652; 86140; 87040; 87070; 87075; 87077; 87186; 87205; 96365; 96367; 96375; 99285; J0692; J1650; J2250; J2405; J2704; J3010; J3370; J7030; J7040; J7120; U0002

== ENCOUNTER → 2023-08-15 | Emergency (ER) | payer SELFPAY ==
--- OUTSIDE RECORDS SUMMARY | 2023-08-15 11:52 | XMS REPORT | Continuity of Care Document ---
Author Name Unknown Address [address] [place] [address] [facility] Address [address] [place] [address] Care Team Providers [employer] Sales Representative Name Role Phone Unavailable Unavailable Unavailable Encounters Start Date/Time End Date/Time Encounter Type Admission Type Attending Clinicians Care Facility Care Department Encounter ID Source 2022-04-06 00:00:00 2022-04-06 00:00:00 Outpatient [facility] [id number] [facility]
[2023-08-15 12:45] LABS: Hematocrit 39.3 % (39.6-49.0); MCV 92.4 fL (80-100); MPV 8.9 fL (7.6-11.3); Platelets 266 thou/uL (152-406); RBC Red Blood Cell Count 4.25 M/uL (4.33-5.43)
--- NOTE | 2023-08-15 13:09 | RAD REPORT ---
EXAM DESCRIPTION: Didi Single View08/15/2023 12:50 pm CLINICAL HISTORY: Chest pain;Palpitations COMPARISON: No comparisons TECHNIQUE: Portable AP view of the chest. FINDINGS: The lungs are clear. No pneumothorax or effusion. The cardiomediastinal contours are unre markable. IMPRESSION: No acute cardiopulmonary process.
--- NOTE | 2023-08-15 13:20 | ER ---
Nurse's Notes [facility] Name: Jose Angel Bradley II Age: 48 yrs Sex: Male : 1975 Arrival Date: 08/15/2023 Time: 11:48 Bed 2 Private MD: Diagnosis: Anxiety disorder, unspecified;Dyspnea, unspecified Presentation: 08/15 11:51 Chief complaint: Patient states: he thinks he was having a panic attack, and got short ap3 of breath then began seeing spots. patient denies any pain. Coronavirus screen: At this time, the client does not indicate any symptoms associated with coronavirus-19. Ebola Screen: No symptoms or risks identified at this time. Initial Sepsis Screen: Does the patient meet any 2 criteria? No. Patient's initial sepsis screen is negative. Does the patient have a suspected source of infection? No. Patient's initial sepsis screen is negative. Risk Assessment: Do you want to hurt yourself or someone else? Patient reports no desire to harm self or others. Onset of symptoms is unknown. 11:51 Method Of Arrival: Ambulatory ap3 11:51 Acuity: SANDER 3 ap3 Triage Assessment: 11:52 General: Appears comfortable, Behavior is cooperative, appropriate for age, anxious. ap3 Pain: Denies pain. Neuro: Level of Consciousness is awake, alert, obeys commands, Oriented to person, place, time, situation. Cardiovascular: Patient's skin is warm and dry. Respiratory: Reports shortness of breath Airway is patent Respiratory effort is even, unlabored, Respiratory pattern is regular, symmetrical, Onset: The symptoms/episode began/occurred this morning, the patient has mild shortness of breath. 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 Flu vaccine is not up to date. - Social history:: Smoking status: Patient reports the use of cigarette tobacco products, smokes one pack cigarettes per day. - Family history:: not pertinent. - Hospitalizations: : No recent hospitalization is reported. Screenin:[facility] ED Fall Risk Assessment (Adult) History of falling in the last 3 months, ap3 including since admission No falls in past 3 months (0 pts). Abuse screen: Denies threats or abuse. Nutritional screening: No deficits noted. Tuberculosis screening: No symptoms or risk factors identified. Assessment: 12:47 General: Appears in no apparent distress. comfortable, well groomed, Behavior is calm, ph cooperative, appropriate for age. Pain: Denies pain. Neuro: Level of Consciousness is awake, alert, obeys commands, Oriented to person, place, time, situation. Cardiovascular: Reports Rhythm is sinus rhythm. Respiratory: Reports shortness of breath RETURN TO FACTORY CLERK, states, " It felt like a panic attack." Airway is patent Respiratory effort is even, unlabored, Respiratory pattern is regular, symmetrical, Breath sounds are clear bilaterally. GI: No signs and/or symptoms were reported involving the gastrointestinal system. Derm: Skin is pink, warm \\T\\ dry. 13:44 Reassessment: Patient appears in no apparent distress at this time. Patient and/or ph family updated on plan of care and expected duration. Pain level reassessed. Patient is alert, oriented x 3, equal unlabored respirations, skin warm/dry/pink. Vital Signs: 11:51 BP 158 / 101; Pulse 74; Resp 18; Pulse Ox 99% ; Weight 88.45 kg; Height 6 ft. 0 in. ; ap3 Pain 0/10; 11:54 BP 142 / 96; Pulse 78; Pulse Ox 100% on R/A; ap3 12:14 BP 148 / 90; Pulse 84; Resp 16; Temp 98; Pulse Ox 99% ; Weight 88.45 kg; Height 6 ft. 0 ls5 in. ; Pain 0/10; 12:49 BP 153 / 92; Pulse 69; Resp 18; Pulse Ox 98% on R/A; ph 13:45 BP 139 / 87; Pulse 72; Resp 18; Temp 98; Pulse Ox 99% on R/A; ph 12:14 Body Mass Index 26.45 (88.45 kg, 182.88 cm) ls5 11:51 Pain Scale: Adult ap3 12:14 Pain Scale: Adult ls5 ED Course: 11:49 Patient arrived in ED. im 11:50 Marquise Wolfe MD is Attending Physician. rn 11:52 Triage completed. ap3 11:53 Arm band placed on right wrist. ap3 12:24 Inserted saline lock: 20 gauge in right antecubital area, using aseptic technique. ls5 Blood collected. 12:32 CBC with Diff Sent. ls5 12:32 Basic Metabolic Panel Sent. ls5 12:32 NT PRO-BNP Sent. ls5 12:32 Troponin HS Sent. ls5 12:47 Brynn Moran, RN is Primary Nurse. ph 12:49 Patient has correct armband on for positive identification. Placed in gown. Bed in low ph position. Call light in reach. Side rails up X 1. Client placed on continuous cardiac and pulse oximetry monitoring. NIBP monitoring applied. Door closed. Noise minimized. 12:52 XRAY Chest (1 view) In Process Unspecified. EDMS 13:45 No provider procedures requiring assistance completed. IV discontinued, intact, ph bleeding controlled, No redness/swelling at site. Pressure dressing applied. Administered Medications: No medications were administered Medication: 12:49 VIS not applicable for this client. ph Outcome: 13:19 Discharge ordered by . rn 13:45 Discharged to home ambulatory, with significant other, ph 13:45 Condition: good 13:45 Discharge instructions given to patient, Instructed on discharge instructions, follow up and referral plans. Demonstrated understanding of instructions, follow-up care, 13:46 Patient left the ED. ph Signatures: Dispatcher [employer] EDMS Marquise Wolfe MD MD rn Hall, Patricia, RN RN Janice Mosqueda RN RN Lamonte Ricci ls5 Alice Lopez
--- NOTE | 2023-08-15 13:20 | EDPHYS ---
Physician Documentation [facility] Name: Jose Angel Bradley II Age: 48 yrs Sex: Male : 1975 Arrival Date: 08/15/2023 Time: 11:48 Bed 2 Private MD: ED Physician Marquise Wolfe HPI: 08/15 13:14 This 48 yrs old Male presents to ER via Ambulatory with complaints of Shortness Of rn Breath, Dizziness. 13:14 The patient has shortness of breath at rest, during emotionally upset. Onset: The rn symptoms/episode began/occurred at an unknown time. Duration: The symptoms are intermittent. The patient's shortness of breath is aggravated by Emotional distress and anxiety. Associated signs and symptoms: Pertinent positives: chest pain, dizziness, Pertinent negatives: fever, hemoptysis, loss of consciousness. Severity of symptoms: At their worst the symptoms were moderate in the emergency department the symptoms have improved. The patient has experienced similar episodes in the past. Patient reports history of anxiety, used to be on medication including Xanax and Klonopin but took himself off of it. Patient reports over the last few weeks has had increased panic attacks with palpitations and shortness of breath, short-lived, and intermittent. Also having chest discomfort shortly after eating baked meals. No blood in stool. No shortness of breath currently. Has never had cardiac problems and no family history of early cardiac problems. Is active smoker.. 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 Flu vaccine is not up to date. - Social history:: Smoking status: Patient reports the use of cigarette tobacco products, smokes one pack cigarettes per day. - Family history:: not pertinent. - Hospitalizations: : No recent hospitalization is reported. ROS: 13:14 Constitutional: Negative for fever, chills, and weight loss, Cardiovascular: Positive rn for chest pain and palpitations Respiratory: Positive for shortness of breath Abdomen/GI: Negative for abdominal pain, nausea, vomiting, diarrhea, and constipation, MS/Extremity: Negative for injury and deformity, Neuro: Negative for headache, weakness, numbness, tingling, and seizure, Exam: 13:14 Constitutional: This is a well developed, well nourished patient who is awake, alert, rn and in no acute distress. Head/Face: Normocephalic, atraumatic. Cardiovascular: Regular rate and rhythm . No pulse deficits. No murmur. Respiratory: Clear bilateral breath sounds. No increased work of breathing, no retractions or nasal flaring. Abdomen/GI: Soft, non-tender Neuro: Awake and alert, GCS 15 13:14 ECG was reviewed by the Attending Physician. rn Vital Signs: 11:51 BP 158 / 101; Pulse 74; Resp 18; Pulse Ox 99% ; Weight 88.45 kg; Height 6 ft. 0 in. ; ap3 Pain 0/10; 11:54 BP 142 / 96; Pulse 78; Pulse Ox 100% on R/A; ap3 12:14 BP 148 / 90; Pulse 84; Resp 16; Temp 98; Pulse Ox 99% ; Weight 88.45 kg; Height 6 ft. 0 ls5 in. ; Pain 0/10; 12:49 BP 153 / 92; Pulse 69; Resp 18; Pulse Ox 98% on R/A; ph 13:45 BP 139 / 87; Pulse 72; Resp 18; Temp 98; Pulse Ox 99% on R/A; ph 12:14 Body Mass Index 26.45 (88.45 kg, 182.88 cm) ls5 11:51 Pain Scale: Adult ap3 12:14 Pain Scale: Adult ls5 MDM: 11:50 Patient medically screened. rn 13:18 Differential diagnosis: Anemia Anxiety Reaction Pneumothorax Psychogenic pulmonary rn edema. Data reviewed: vital signs, nurses notes, lab test result(s), EKG, radiologic studies, plain films, and as a result, I will discharge patient. Counseling: I had a detailed discussion with the patient and/or guardian regarding the historical points, exam findings, and any diagnostic results supporting the discharge/admit diagnosis, lab results, radiology results, the need for outpatient follow up, to return to the emergency department if symptoms worsen or persist or if there are any questions or concerns that arise at home. Response to treatment: the patient's symptoms have markedly improved after treatment, and as a result, I will discharge patient. Special discussion: I discussed with the patient/guardian in detail that at this point there is no indication for admission to the hospital. It is understood, however, that if the symptoms persist or worsen the patient needs to return immediately for re-evaluation. Based on the history and exam findings, there is no indication for further emergent testing or inpatient evaluation. I discussed with the patient/guardian the need to see the primary care provider for further evaluation of the symptoms. I discussed with the patient/guardian the need to see the psychiatrist for further evaluation of the symptoms. ED course: Symptoms have improved without medical management. Troponin and BNP negative. No anemia. No electrolyte or kidney disorder. Most likely anxiety disorder as has long history and several episodes recently in the setting of a negative troponin and no ischemia on ECG. I have personally reviewed all of the results, including but not limited to blood tests and imaging deemed necessary to safely discharge this patient at this time. All results given to and printed out for patient. I personally went over all the results with the patient and answered all questions. Patient will follow-up with PCP and or specialist as discussed. Return precautions given and understood.. 08/15 12:07 Order name: Basic Metabolic Panel; Complete Time: 12:57 rn 08/15 12:07 Order name: CBC with Diff; Complete Time: 12:08/15 12:07 Order name: NT PRO-BNP; Complete Time: 12:57 08/15 12:07 Order name: Troponin HS; Complete Time: 12:08/15 12:07 Order name: XRAY Chest (1 view); Complete Time: 13:10 08/15 12:07 Order name: EKG; Complete Time: 12:08/15 12:07 Order name: Cardiac monitoring; Complete Time: 12:33 08/15 12:07 Order name: EKG - Nurse/Tech; Complete Time: 12:32 08/15 12:07 Order name: IV Saline Lock; Complete Time: 12:33 08/15 12:07 Order name: Labs collected and sent; Complete Time: 12:08/15 12:07 Order name: O2 Per Protocol; Complete Time: 12:08/15 12:07 Order name: O2 Sat Monitoring; Complete Time: 12:32 rn EC:14 Rate is 76 beats/min. Rhythm is regular. QRS [place] is Normal. ME interval is normal. QRS rn interval is normal. QT interval is normal. No Q waves. T waves are Normal. No ST changes noted. Clinical impression: NSR w/ Non-specific ST/T Changes. Interpreted by me. Reviewed by me. Administered Medications: No medications were administered Disposition Summary: 08/15/23 13:19 Discharge Ordered Notes: Location: Home rn Problem: new rn Symptoms: have improved rn Condition: Stable rn Diagnosis - Anxiety disorder, unspecified rn - Dyspnea, unspecified rn Followup: rn - With: Private Physician - When: As needed - Reason: Recheck today's complaints, Re-evaluation by your physician Discharge Instructions: - Discharge Summary Sheet rn - Panic Attack rn - Shortness of Breath, Adult rn - Generalized Anxiety Disorder, Adult rn - Managing Anxiety, Adult rn Forms: - Medication Reconciliation Form rn - Thank You Letter rn - 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
[2023-08-15 15:09] VITALS: BP 139/87; TEMP 98; O2SAT 99
== END ==
LOC: ER 11:48
DX: F41.9 Anxiety disorder, unspecified (principal); R06.00 Dyspnea, unspecified; F17.210 Nicotine dependence, cigarettes, uncomplicated
CPT/HCPCS: 36415; 71045; 80048; 83880; 84484; 85025; 93005; 99284